=== PATIENT | male | born 1965 | race Caucasian/White ===

== ENCOUNTER 2018-05-02 22:38 | Emergency (ER) | payer MEDICAID ==
[~2018-05-02] VITALS: Ht 180.3 cm; Wt 91.0 kg
[2018-05-03] MEDS ORDERED: ACETAMINOPHEN 500MG TABLET PO ONE (00:45)
[2018-05-03] MEDS ORDERED: LISINOPRIL 10MG TABLET PO ONE (00:45)
[2018-05-03 05:36] VITALS: BP 130/84
== END 2018-05-03 05:41 | disposition home or self-care (01) ==
LOC: ER 22:38
DX: I11.0 Hypertensive heart disease with heart failure (principal); I50.9 Heart failure, unspecified; Z91.14 Patient's other noncompliance with medication regimen; F17.210 Nicotine dependence, cigarettes, uncomplicated
CPT/HCPCS: 71045; 99283